=== PATIENT | male | born 1995 | race Caucasian/White ===

== ENCOUNTER 2016-10-29 15:26 | Emergency (ER) | payer BC ==
[2016-10-29 15:50] VITALS: BP 135/64
--- NOTE | 2016-10-29 16:02 | UC ---
Throat Pain/Nasal Varinder HPI - HPI Summary HPI Summary: Nasal congestion, cough, mild asthma symptoms starting about 2 days ago. Has felt warm to the touch, no measured fever. Denies ST, vomiting, rash, or headache. Most concerned about getting a note for class as he didn't feel well enough to leave bed earlier. Also needs a refill of his albuterol inhaler. - History of Current Complaint Chief Complaint: UCRespiratory Stated Complaint: COUGH/CONGESTION Time Seen by Provider: 10/29/16 15:42 Hx Obtained From: Patient Onset/Duration: Gradual Onset, Lasting Days Severity: Mild Cough: Productive Associated Signs & Symptoms: Positive: Nasal Discharge - Allergies/Home Medications Allergies/Adverse Reactions: Allergies Allergy/AdvReac Type Severity Reaction Status Date / Time pollen, hay Allergy Congestion Uncoded 10/29/16 15:41 Home Medications: Home Medications [id number] [Night Time Multi-Symptom 15-6.25-325 mg] 1 cap PO BEDTIME 10/29/16 [History Confirmed 10/29/16] PMH/Surg Hx/FS Hx/Imm Hx Respiratory History Of: Reports: Asthma - allergy induced - Surgical History Surgical History: None - Family History Known Family History: Positive: Respiratory Disease - asthma - Social History Occupation: Student Alcohol Use: Rare Substance Use Type: None Smoking Status (MU): Never Smoked Tobacco - Immunization History Most Recent Influenza Vaccination: NO Review of Systems Constitutional: Fatigue Skin: Negative Eyes: Negative ENT: Nasal Discharge Respiratory: Cough Cardiovascular: Negative Gastrointestinal: Negative Genitourinary: Negative Motor: Negative Neurovascular: Negative Musculoskeletal: Negative Neurological: Negative Psychological: Negative All Other Systems Reviewed And Are Negative: Yes Physical Exam Triage Information Reviewed: Yes Appearance: Well-Appearing, No Pain Distress, Well-Nourished Vital Signs: Initial Vital Signs Temp 98.1 F 10/29/16 15:42 Pulse 81 10/29/16 15:42 Resp 20 10/29/16 15:42 BP 135/64 10/29/16 15:42 Pulse Ox 96 10/29/16 15:42 Vital Signs Reviewed: Yes Eye Exam: Normal Eyes: Positive: Conjunctiva Clear ENT: Positive: Hearing grossly normal, Pharynx normal, Nasal congestion, TMs normal. Negative: Tonsillar swelling, Tonsillar exudate Dental Exam: Normal Neck exam: Normal Neck: Positive: Supple, Nontender, No Lymphadenopathy Respiratory Exam: Normal Respiratory: Positive: Chest non-tender, Lungs clear, Normal breath sounds, No respiratory distress, No accessory muscle use Cardiovascular Exam: Normal Cardiovascular: Positive: RRR, No Murmur Musculoskeletal Exam: Normal Neurological Exam: Normal Neurological: Positive: Alert Psychological Exam: Normal Skin Exam: Normal Throat Pain/Nasal Course/Dx - Differential Dx/Diagnosis Provider Diagnoses: URI, likely viral Discharge - Discharge Plan Condition: Stable Disposition: HOME Prescriptions: Albuterol HFA INHALER* [Ventolin HFA Inhaler*] 1 - 2 puff INH Q6H PRN #1 mdi PRN Reason: Wheezing Patient Education Materials: Cold Symptoms (ED) Forms: *School Release Referrals: Non Staff,Doctor [Primary Care Provider] -
== END 2016-10-29 16:07 | disposition home or self-care (01) ==
LOC: UCCORT 15:26
DX: R09.81 Nasal congestion (principal); J06.9 Acute upper respiratory infection, unspecified; J45.909 Unspecified asthma, uncomplicated
CPT/HCPCS: 99212; G0463

== ENCOUNTER 2017-08-20 08:45 | Emergency (ER) | payer BC ==
[2017-08-20 10:00] VITALS: BP 144/86
--- NOTE | 2017-08-20 10:11 | UC ---
FLU HPI - HPI Summary HPI Summary: Fever and myalgias since Friday. Minor cough and congestion. No prior chronic illness. - History of Current Complaint Chief Complaint: UCGeneralIllness Stated Complaint: FLU LIKE SYMPTOMS Time Seen by Provider: 08/20/17 10:02 Hx Obtained From: Patient Onset/Duration: Gradual Onset, Lasting Days Severity Currently: Moderate Severity Initially: Moderate Pain Intensity: 5 Associated Signs & Symptoms: Positive: Fever, Myalgia, Cough, Nasal Congestion - Allergy/Home Medications Allergies/Adverse Reactions: Allergies Allergy/AdvReac Type Severity Reaction Status Date / Time pollen, hay Allergy Congestion Uncoded 08/20/17 09:50 Home Medications: Home Medications Kbeucuekimoty-Lbtccwopzw-Gjywj [Nyquil Severe Cold/Flu 5-6.25-10-325 mg/15Ml] 1 liq PO QPM PRN 08/20/17 [History Confirmed 08/20/17] PMH/Surg Hx/FS Hx/Imm Hx Previously Healthy: Yes - Surgical History Surgical History: None - Family History Known Family History: Positive: Respiratory Disease - asthma - Social History Alcohol Use: Rare Substance Use Type: None Smoking Status (MU): Never Smoked Tobacco - Immunization History Most Recent Influenza Vaccination: NO Review of Systems Constitutional: Fever Respiratory: Cough Musculoskeletal: Myalgia All Other Systems Reviewed And Are Negative: Yes Physical Exam Triage Information Reviewed: Yes Appearance: Well-Appearing, No Pain Distress, Well-Nourished Vital Signs: Initial Vital Signs Temp 100.2 F 08/20/17 09:53 Pulse 105 08/20/17 09:53 Resp 18 08/20/17 09:53 BP 144/86 08/20/17 09:53 Pulse Ox 95 08/20/17 09:53 Vital Signs Reviewed: Yes Eye Exam: Normal Eyes: Positive: Conjunctiva Clear ENT: Positive: Pharynx normal, Nasal congestion, TMs normal, Uvula midline. Negative: Pharyngeal erythema, TM bulging, TM dull, TM red, Tonsillar swelling, Tonsillar exudate, Trismus, Muffled voice, Dental tenderness, Sinus tenderness Neck: Positive: Supple, Nontender, No Lymphadenopathy Respiratory: Positive: Lungs clear, Normal breath sounds, No respiratory distress, No accessory muscle use. Negative: Respiratory distress, Decreased breath sounds, Accessory muscle use, Crackles, Rhonchi, Stridor, Wheezing Cardiovascular: Positive: No Murmur, Pulses Normal, Brisk Capillary Refill Abdomen Description: Positive: No Organomegaly, Soft. Negative: Distended, Guarding Musculoskeletal: Positive: ROM Intact, No Edema Neurological: Positive: Alert, Muscle Tone Normal Psychological: Positive: Age Appropriate Behavior Skin: Negative: rashes Flu Course/Dx - Differential Dx/Diagnosis Provider Diagnoses: viral illness- influenza. Discharge - Discharge Plan Condition: Good Disposition: HOME Prescriptions: Oseltamivir CAP* [Tamiflu CAP*] 75 mg PO BID #10 cap Patient Education Materials: Influenza (ED) Forms: *Work Release Referrals: Non Staff,Doctor [Primary Care Provider] -
== END 2017-08-20 10:45 | disposition home or self-care (01) ==
LOC: UCCORT 08:45
DX: B34.9 Viral infection, unspecified (principal); J11.1 Influenza due to unidentified influenza virus with other respiratory manifestations
CPT/HCPCS: 87502; 99212; G0463

== ENCOUNTER 2018-11-26 07:03 | Emergency (ER) | payer BC ==
[2018-11-26 07:16] VITALS: BP 121/82
[2018-11-26] MEDS ORDERED: Albuterol 2.5 MG/3 ML NEB.SOL* (0.083%) INH ONE (07:31)
--- NOTE | 2018-11-26 07:38 | UC ---
General HPI - HPI Summary HPI Summary: States he has asthma - thinks its seasonal related to his allergies. Ran out of his albuterol for the past week and really needs it. No coughing, but can hear wheezing and is short of breath. No CP. No fever. +Congestion. No sore throat. No n/v/d. No rash. States he has been taking marcela as needed. Having a hard time with his cardio exercises due to sob. DOes not normally use a spacer with his inhaler. MEds; Reviewed - History of Current Complaint Chief Complaint: UCGeneralIllness Stated Complaint: ALLERGIES,CONGESTION Time Seen by Provider: 11/26/18 07:25 Pain Intensity: 0 - Allergy/Home Medications Allergies/Adverse Reactions: Allergies Allergy/AdvReac Type Severity Reaction Status Date / Time pollen, hay Allergy Congestion Uncoded 11/26/18 07:16 PMH/Surg Hx/FS Hx/Imm Hx Previously Healthy: Yes Respiratory History: Asthma - Surgical History Surgical History: None - Family History Known Family History: Positive: Respiratory Disease - asthma - Social History Alcohol Use: Rare Substance Use Type: None Smoking Status (MU): Never Smoked Tobacco - Immunization History Most Recent Influenza Vaccination: NO Review of Systems All Other Systems Reviewed And Are Negative: Yes Constitutional: Positive: Negative ENT: Positive: Sinus Congestion Respiratory: Positive: Shortness Of Breath Physical Exam Triage Information Reviewed: Yes Appearance: Well-Appearing Vital Signs: Initial Vital Signs Temp 97.6 F 11/26/18 07:12 Pulse 71 11/26/18 07:12 Resp 16 11/26/18 07:12 BP 121/82 11/26/18 07:12 Pulse Ox 96 11/26/18 07:12 Vital Signs Reviewed: Yes ENT: Positive: Pharyngeal erythema, Nasal congestion, TMs normal Neck: Positive: Supple, Nontender Respiratory: Positive: Other: - diminished breath sounds, poor aeration, b/l expiratory wheeze throughout. No increase in work of breathing. No accessory muscle use Cardiovascular: Positive: RRR, No Murmur Skin Exam: Normal Course/Dx - Course Course Of Treatment: This is a 23 yr old with PMHx of asthma presents with SOB, ran out of inhaler for past week Asthma exacerbation secondary to allergies and not having his albuterol inhaler Albuterol neb given in urgent care Plan Recommend Albuterol inhaler 2 puffs every 4-6 hours as needed for cough/wheeze - use with spacer Recommend Prednisone 40 mg daily x 4 days Continue to take Allergra daily during allergy season Start Flonase as directed If symptoms persist or worsen, follow up with your PCP or return to urgent care or the ER - Diagnoses Provider Diagnosis: Asthma exacerbation, Seasonal allergies Discharge - Sign-Out/Discharge Documenting (check all that apply): Patient Departure All imaging exams completed and their final reports reviewed: No Studies - Discharge Plan Condition: Good Disposition: HOME Prescriptions: Albuterol HFA INHALER* [Ventolin HFA Inhaler*] 2 puff INH Q4H PRN #1 mdi PRN Reason: Cough Fluticasone NASAL SPRAY 50MCG* [Flonase NASAL SPRAY 50MCG*] 2 spray BOTH NARES DAILY #1 btl predniSONE [Prednisone 20 MG TAB] 40 mg PO DAILY #8 tablet Spacer/Holding Chamber (NF) [Easivent CHAMBER (NF)] 1 applic INH Q4HR PRN #1 device PRN Reason: Cough Patient Education Materials: Asthma (ED), Allergies (ED) Referrals: No Primary Care Phys,NOPCP [Primary Care Provider] - Additional Instructions: Recommend Albuterol inhaler 2 puffs every 4-6 hours as needed for cough/wheeze - use with spacer Recommend Prednisone 40 mg daily x 4 days Continue to take Allergra daily during allergy season Start Flonase as directed If symptoms persist or worsen, follow up with your PCP or return to urgent care or the ER - Billing Disposition and Condition Condition: GOOD Disposition: Home
== END 2018-11-26 08:01 | disposition home or self-care (01) ==
LOC: UCCORT 07:03
DX: J45.901 Unspecified asthma with (acute) exacerbation (principal); J30.2 Other seasonal allergic rhinitis; Z91.048 Other nonmedicinal substance allergy status
CPT/HCPCS: 99212; G0463

== ENCOUNTER 2019-07-15 08:13 | Emergency (ER) | payer BC ==
[2019-07-15 08:35] VITALS: BP 116/66
--- NOTE | 2019-07-15 09:04 | UC ---
Asthma HPI - HPI Summary HPI Summary: 23 yo male requests med refill for his rescue inhaler heading home for 3weeks and out of it currently not wheezy no uri symptoms - History of Current Complaint Chief Complaint: UCMedRefill Stated Complaint: ASTHMA Time Seen by Provider: 07/15/19 08:55 Hx Obtained From: Patient Onset/Duration: Other - requests med refill Current Severity: None Pain Intensity: 0 Pain Scale Used: 0-10 Numeric - Allergy/Home Medications Allergies/Adverse Reactions: Allergies Allergy/AdvReac Type Severity Reaction Status Date / Time pollen, hay Allergy Congestion Uncoded 07/15/19 08:31 Home Medications: Home Medications Fluticas/Salmet 45/21 (NF) [Advair HFA 45/21 (NF)] 1 puff INH DAILY 07/15/19 [ History Confirmed 07/15/19] PMH/Surg Hx/FS Hx/Imm Hx Previously Healthy: Yes Respiratory History: Asthma - Surgical History Surgical History: None - Family History Known Family History: Negative: Respiratory Disease - no family hx of asthma - Social History Alcohol Use: Rare Substance Use Type: None Smoking Status (MU): Never Smoked Tobacco - Immunization History Most Recent Influenza Vaccination: NO Review of Systems All Other Systems Reviewed And Are Negative: Yes Constitutional: Positive: Negative Skin: Positive: Negative Eyes: Positive: Negative ENT: Positive: Negative Respiratory: Positive: Negative Cardiovascular: Positive: Negative Gastrointestinal: Positive: Negative Genitourinary: Positive: Negative Motor: Positive: Negative Neurovascular: Positive: Negative Musculoskeletal: Positive: Negative Neurological: Positive: Negative Psychological: Positive: Negative Physical Exam Triage Information Reviewed: Yes Appearance: Well-Appearing, No Pain Distress, Well-Nourished Vital Signs: Initial Vital Signs Temp 98.5 F 07/15/19 08:30 Pulse 56 07/15/19 08:30 Resp 16 07/15/19 08:30 BP 116/66 07/15/19 08:30 Pulse Ox 98 07/15/19 08:30 Vital Signs Reviewed: Yes Eyes: Positive: Conjunctiva Clear ENT: Positive: Hearing grossly normal, Pharynx normal, TMs normal. Negative: Nasal congestion, Nasal drainage, Trismus, Muffled voice, Hoarse voice Dental Exam: Normal Neck: Positive: Supple, Nontender, No Lymphadenopathy Respiratory: Positive: Lungs clear, Normal breath sounds, No respiratory distress, No accessory muscle use Cardiovascular: Positive: RRR, No Murmur Abdominal Exam: Normal Musculoskeletal: Positive: ROM Intact, No Edema Neurological: Positive: Alert Psychological Exam: Normal Skin Exam: Normal Asthma Course/Dx - Differential Dx/Diagnosis Provider Diagnosis: History of asthma, Medication refill Discharge ED - Sign-Out/Discharge Documenting (check all that apply): Post-Discharge Follow Up All imaging exams completed and their final reports reviewed: No Studies - Discharge Plan Condition: Stable Disposition: HOME Prescriptions: Albuterol HFA INHALER* [Ventolin HFA Inhaler*] 2 puff INH QID PRN #1 mdi PRN Reason: Wheezing Patient Education Materials: Asthma (ED) Referrals: No Primary Care Phys,NOPCP [Primary Care Provider] - Additional Instructions: recheck if needed call for any questions - Billing Disposition and Condition Condition: STABLE Disposition: Home
== END 2019-07-15 09:09 | disposition home or self-care (01) ==
LOC: UCCORT 08:13
DX: Z76.0 Encounter for issue of repeat prescription (principal); J45.909 Unspecified asthma, uncomplicated; Z91.09 Other allergy status, other than to drugs and biological substances; Z79.51 Long term (current) use of inhaled steroids
CPT/HCPCS: 99212; G0463

== ENCOUNTER 2019-10-17 12:16 | Emergency (ER) | payer BC ==
--- NOTE | 2019-10-17 12:27 | UC ---
Respiratory Complaint HPI - HPI Summary HPI Summary: 23-year-old male with history of asthma presents with request for a refill of his albuterol inhaler. States he ran out about 2 days ago. Typically uses the inhaler 1-2 times a day. Denies fever, chills, URI symptoms, chest pain, SOB, or wheezing. - History of Current Complaint Stated Complaint: ASTHMA Time Seen by Provider: 10/17/19 12:25 - Allergies/Home Medications Allergies/Adverse Reactions: Allergies Allergy/AdvReac Type Severity Reaction Status Date / Time pollen, hay Allergy Congestion Uncoded 07/15/19 08:31 Home Medications: Home Medications Fluticasone NASAL SPRAY 50MCG* [Flonase NASAL SPRAY 50MCG*] 2 spray BOTH NARES DAILY #1 btl 11/26/18 [Rx Confirmed 10/17/19] Spacer/Holding Chamber (NF) [Easivent CHAMBER (NF)] 1 applic INH Q4HR PRN #1 device 11/26/18 [Rx Confirmed 10/17/19] Albuterol HFA INHALER* [Ventolin HFA Inhaler*] 2 puff INH Q4H PRN #1 mdi [Rx] PMH/Surg Hx/FS Hx/Imm Hx Respiratory History: Asthma - Surgical History Surgical History: None - Family History Known Family History: Negative: Respiratory Disease - no family hx of asthma - Social History Occupation: Student Lives: Dormitory/Roommates Alcohol Use: Rare Substance Use Type: None Smoking Status (MU): Never Smoked Tobacco - Immunization History Most Recent Influenza Vaccination: NO Review of Systems All Other Systems Reviewed And Are Negative: Yes Constitutional: Positive: Negative ENT: Positive: Negative Respiratory: Positive: Negative Cardiovascular: Positive: Negative Gastrointestinal: Positive: Negative Genitourinary: Positive: Negative Musculoskeletal: Positive: Negative Neurological/Mental Status: Positive: Negative Is Patient Immunocompromised?: No Physical Exam - Summary Physical Exam Summary: GENERAL APPEARANCE: Well developed, well nourished, alert and cooperative, and appears to be in no acute distress. EYES: Conjunctiva clear. No drainage. EARS: External auditory canals and tympanic membranes clear, hearing grossly intact. NOSE: No nasal discharge. THROAT: Pharynx normal No tonsilar inflammation, swelling, exudate, or lesions. Uvula midline. NECK: Neck supple, non-tender without lymphadenopathy. CARDIAC: Normal S1 and S2. No S3, S4 or murmurs. Rhythm is regular. There is no peripheral edema, cyanosis or pallor. Extremities are warm and well perfused. Capillary refill is less than 2 seconds. Peripheral pulses intact. LUNGS: Clear to auscultation without rales, rhonchi, wheezing or diminished breath sounds. ABDOMEN: Positive bowel sounds. Soft, nondistended, nontender. No guarding or rebound. No masses or hepatosplenomegally. MUSKULOSKELETAL: ROM intact to all extremities. No joint erythema or tenderness. Normal muscular development. Normal gait. SKIN: Skin normal color, texture and turgor with no lesions or eruptions. Triage Information Reviewed: Yes Vital Signs Reviewed: Yes Respiratory Course/Dx - Course Course Of Treatment: 23-year-old male with history of asthma presents with request for a refill of his albuterol inhaler. States he ran out about 2 days ago. Typically uses the inhaler 1-2 times a day. Denies fever, chills, URI symptoms, chest pain, SOB, or wheezing. Afebrile. VSS. Patient's exam was unremarkable. Will fill his prescription with 1 refill. He is to follow up with his primary care provider as needed. - Differential Dx/Diagnosis Differential Diagnosis/HQI/PQRI: Asthma, Bronchitis, Lower Resp Infection Provider Diagnosis: Asthma Discharge ED - Sign-Out/Discharge Documenting (check all that apply): Patient Departure All imaging exams completed and their final reports reviewed: No Studies - Discharge Plan Condition: Stable Disposition: HOME Prescriptions: Albuterol HFA INHALER* [Ventolin HFA Inhaler*] 2 puff INH Q4H PRN #1 mdi PRN Reason: Sob/Wheezing Patient Education Materials: Asthma (ED) Referrals: No Primary Care Phys,NOPCP [Primary Care Provider] - Additional Instructions: We have refilled your albuterol inhaler prescription. Use according to directions. It is extremely important at this time to be heeding the calls for social distancing. Social distancing is deliberately increasing the physical space between people to avoid spreading illness. Staying at least six feet away from other people lessens your chances of catching COVID-19. Examples of social distancing that allow you to avoid larger crowds or crowded spaces are: * Working from home instead of at the office * Switching to online classes * Visiting loved ones by electronic devices instead of in person * Cancelling or postponing conferences and large meetings Follow up with your primary care provider as needed. - Billing Disposition and Condition Condition: STABLE Disposition: Home
== END 2019-10-17 12:52 | disposition home or self-care (01) ==
LOC: UCCORT 12:16
DX: J45.909 Unspecified asthma, uncomplicated (principal); Z91.09 Other allergy status, other than to drugs and biological substances
CPT/HCPCS: 99212; G0463